=== PATIENT | female | born 1940 | race Caucasian/White ===

== ENCOUNTER 2016-10-22 10:00 | Inpatient (IN) ==
[2016-10-19 12:04] LABS: MANUAL DIFF NEEDED? NO
[2016-10-19 12:32] LABS: BASO% 0.2 % (0.0-0.8); EOS# 0.23 X1000 (0.0-0.7); EOS% 2.6 % (0.0-10.0); HEMATOCRIT 47.8 % (37.0-47.0); HEMOGLOBIN 15.7 g/dL (12.0-16.0); IMM GRAN# 0.03 X1000 (0.0-0.04); IMM GRAN% 0.3 % (0.0-0.5); LYMPH# 1.62 X1000 (1.2-3.4); LYMPH% 18.6 % (20.5-51.1); MCH 32.2 PG (27-31); MCHC 32.8 g/dL (33-37); MCV 98.2 FL (81-99); MONO# 0.81 X1000 (0.11-0.59); MONO% 9.3 % (1.7-9.3); MPV 10.7 FL (7.4-10.4); PLT 226 X1000 (130-400); RBC 4.87 XMIL (4.2-5.4)
[2016-10-19 12:32] LABS: INR 1.13; PTT 32.2 Seconds (22.0-36.0)
[2016-10-19 13:19] LABS: AGAP 13; ALBUMIN 4.4 g/dL (3.5-5.0); ALKALINE PHOSPHATASE 126 U/L (32-104); BUN 8 mg/dL (8-22); CALCIUM 9.8 mg/dL (8.8-10.2); CHLORIDE 101 mmol/L (98-107); COSMO 284; GOT 17 U/L (10-30); GPT 13 U/L (10-36); POTASSIUM 4.7 mmol/L (3.5-5.1); SODIUM 143 mmol/L (136-145); TCO2 29 mmol/L (25-35); TOTAL BILIRUBIN 0.39 mg/dL (0.20-1.00); TOTAL PROTEIN 6.8 g/dL (6.3-8.3)
[2016-10-22] MEDS ORDERED: NS 1,000 ML ONE (10:10)
[2016-10-22] MEDS ORDERED: DIPRIVAN 1% ONE (10:29)
[2016-10-22] MEDS ORDERED: XYLOCAINE-MPF 2% ONE (10:29)
[2016-10-22] MEDS ORDERED: XYLOCAINE 4% TOPICAL SOLUTION ONE (10:32)
--- NOTE | 2016-10-22 11:14 | EKG Report ---
Test Performed on : 10/22/2016 10:14:32 AM Test Reason : LAWRENCE-CARDIO Blood Pressure : / mmHG Vent. Rate : 106 BPM Atrial Rate : 107 BPM P-R Int : 000 ms QRS Dur : 102 ms QT Int : 304 ms P-R-T Axes : 000 -55 019 degrees QTc Int : 403 ms Atrial fibrillation. with rapid ventricular response. Left anterior fascicular block Abnormal ECG No previous ECGs available Confirmed by Alonzo Olson DO ([id number]) on 10/24/2016 10:31:15 AM
[2016-10-22] MEDS ORDERED: AMIDATE ONE (13:23)
--- NOTE | 2016-10-22 13:27 | EKG Report ---
Test Performed on : 10/22/2016 12:07:20 PM Test Reason : following LAWRENCE Blood Pressure : / mmHG Vent. Rate : 084 BPM Atrial Rate : 084 BPM P-R Int : 162 ms QRS Dur : 102 ms QT Int : 376 ms P-R-T Axes : 079 -57 000 degrees QTc Int : 444 ms Normal sinus rhythm. Left anterior fascicular block Nonspecific ST abnormality Abnormal ECG When compared with ECG of 22-OCT-2016 10:14, (Unconfirmed) Sinus rhythm. has replaced Atrial fibrillation. T wave amplitude has decreased in far lateral leads Confirmed by Alonzo Olson DO ([id number]) on 10/24/2016 10:33:39 AM
--- NOTE | 2016-10-22 14:09 | Diag Imaging Result Doc PS360 ---
EXAM: CHEST-2 VIEWS HISTORY: wheezing TECHNIQUE: PA and lateral chest COMMENT: There is hazy opacity over the posterior costophrenic sulci. The heart size and pulmonary vascularity are within normal limits. There are otherwise no focal opacities and no previous studies are available for comparison. IMPRESSION: Mild pulmonary edema versus pneumonia particularly in the posterior costophrenic sulci of the lower lobes. Electronically signed by Vikash Ni 10/22/2016 2:06 PM
[2016-10-22] MEDS ORDERED: DUONEB (A & A) INH ONE (14:31)
[2016-10-22] MEDS ORDERED: LASIX IV ONE ×2 (14:38→23:35)
[2016-10-22] MEDS ORDERED: LASIX ONE (14:51)
[2016-10-22] MEDS ORDERED: ZOFRAN IV PRN (19:44)
[2016-10-22] MEDS ORDERED: MORPHINE IV PRN (19:44)
[2016-10-22] MEDS ORDERED: DUONEB (A & A) INH PRN (19:44)
[2016-10-22] MEDS ORDERED: SODIUM CHLORIDE 0.9% INJ SCH (19:45)
--- NOTE | 2016-10-22 20:36 | Diag Imaging Result Doc PS360 ---
EXAM: CT THORAX W/O CONTRAST HISTORY: pna, pulm edema TECHNIQUE: CT of the chest without contrast with dose reduction (clarity.) COMMENT: There are small pleural effusions in the posterior costophrenic sulci. There is minimal atelectasis in the posterior lower lobes. There is a calcified granuloma present in the right lower lobe on image 70. There is minimal groundglass opacity in the left lower lobe which may be a small focus of pneumonia or pulmonary edema. There are calcified nodes in both mohsen. There is no evidence of acute bony disease. IMPRESSION: Minimal bilateral pleural effusions with atelectasis. Questionable pulmonary edema versus pneumonia left lower lobe. Electronically signed by Vikash Ni 10/22/2016 8:34 PM
[2016-10-22 20:46] LABS: ALLEN TEST YES; BE 6.5 mmoll (-3.0-3.0); BLOOD TYPE ARTERIAL; DRAW SITE R RADIAL; METHB 0.7 % (0.0-1.5); O2(CT) 20.2 mL/dL (15.0-23.0); PCO2(98.6) 44 mmHg (35-45); PO2(98.6) 60 mmHg (60-100); SAMPLE BLOOD; SAO2 93.9 % (95.0-100.0); THB 15.7 g/dL (11.5-17.4); pH(98.6) 7.46 (7.35-7.45)
[2016-10-22 20:47] LABS: MODALITY CANNULA
[2016-10-22] MEDS ORDERED: ZOCOR PO SCH (21:00)
[2016-10-22] MEDS ORDERED: PROTONIX IV SCH (21:00)
[2016-10-22 21:07] LABS: MANUAL DIFF NEEDED? NO
[2016-10-22 21:10] LABS: BASO% 0.2 % (0.0-0.8); EOS# 0.27 X1000 (0.0-0.7); EOS% 2.6 % (0.0-10.0); HEMATOCRIT 46.6 % (37.0-47.0); HEMOGLOBIN 15.5 g/dL (12.0-16.0); LYMPH# 1.55 X1000 (1.2-3.4); LYMPH% 14.7 % (20.5-51.1); MCH 32.6 PG (27-31); MCHC 33.3 g/dL (33-37); MCV 98.1 FL (81-99); MONO# 0.87 X1000 (0.11-0.59); MONO% 8.3 % (1.7-9.3); MPV 10.8 FL (7.4-10.4); NEUT% 74.2 % (42.2-75.2); PLT 212 X1000 (130-400); RBC 4.75 XMIL (4.2-5.4)
--- NOTE | 2016-10-22 21:17 | CARDIAC CATH REPORT ---
PROCEDURE NAME: - SUMMARY: Patient had already been given anesthesia for conscious sedation with propofol per Anesthesiology. Transesophageal echocardiography just performed revealed no evidence of intracardiac thrombus. Patient was subsequently administered 200 joules synchronized biphasic shock with resultant conversion of atrial fibrillation to sinus rhythm. The patient tolerated cardioversion of atrial fibrillation to sinus rhythm without complication. CONCLUSIONS: Successful cardioversion of atrial fibrillation to sinus rhythm. cc: MD Carlos Jones MD
--- NOTE | 2016-10-22 21:17 | ECHO REPORT ---
ORDER DATE: 10/22/2016 SUMMARY: After topical anesthesia to pharynx and intravenous sedation per Anesthesiology with intravenous propofol I passed transesophageal echocardiography in the patient's esophagus without difficulty. Transesophageal echocardiography was performed without incident and demonstrated: 1. Aortic, mitral, tricuspid and pulmonic valves are without structural abnormality. There is mild mitral regurgitation. There is mild tricuspid regurgitation. 2. Normal left ventricular dimension suggested. Estimated left ejection fraction appears to be at least 60%. No regional wall motion abnormalities are evident. Left atrium is mildly enlarged. Right atrium, right ventricle are normal size with normal right ventricular systolic function. All 4 cardiac chambers and left atrial appendage appear free of intracardiac thrombus. 3. No pericardial effusion. 4. Interatrial septum appears intact without evidence of interatrial shunting on color Doppler. Intravenous agitated saline contrast study performed reveals no evidence of [id number] intracardiac shunting. 5. Descending thoracic aorta demonstrates moderate atherosclerotic plaquing. Ascending aorta appears normal in size. cc: MD Carlos Jones MD
[2016-10-22 21:33] LABS: AGAP 16; ALBUMIN 3.9 g/dL (3.5-5.0); ALKALINE PHOSPHATASE 141 U/L (32-104); BUN 8 mg/dL (8-22); CALCIUM 9.6 mg/dL (8.8-10.2); CHLORIDE 100 mmol/L (98-107); COSMO 286; GOT 17 U/L (10-30); GPT 16 U/L (10-36); POTASSIUM 3.9 mmol/L (3.5-5.1); SODIUM 144 mmol/L (136-145); TCO2 28 mmol/L (25-35); TOTAL BILIRUBIN 0.55 mg/dL (0.20-1.00); TOTAL PROTEIN 6.3 g/dL (6.3-8.3)
[2016-10-22] MEDS: ELIQUIS PO SCH (22:40)
[2016-10-22] MEDS: BENTYL PO SCH (22:40)
[2016-10-22] MEDS: ZOSYN 3.375 GM/NS 3.375 GM/50 ML IVPB IV SCH (22:40)
[2016-10-22] MEDS: RYTHMOL SR PO SCH (22:41)
[2016-10-22] MEDS: HUMALOG SUBQ SCH (22:41)
[2016-10-22] MEDS: DUONEB (A & A) INH SCH (23:17)
[2016-10-22] MEDS ORDERED: TYLENOL PO PRN (23:32)
--- NOTE | 2016-10-23 00:43 | HISTORY AND PHYSICAL ---
PRIMARY CARE PROVIDER: Dr. Nicola Dunne. [employer]: Dr. Inder Ramos. TIME: 2029. HISTORY OF PRESENT ILLNESS: Ms Contreras is a 76-year-old female who presented to the hospital early this morning for an outpatient procedure for a transesophageal echocardiogram and cardioversion of atrial fibrillation. Dr. Inder Ramos with Cardiology performed the procedure. According to his procedure note the patient was given anesthesia for conscious sedation with propofol per anesthesiology. The transesophageal echocardiogram performed revealed no evidence of intracardiac thrombus. She was subsequently given 200 joules for synchronized biphasic cardioversion and was successfully cardioverted from atrial fibrillation to sinus rhythm though shortly after the procedure the patient was noted to have some wheezing and was having some hypoxia as well. She was maintaining oxygen saturations at 90% and previously prior to the procedure she was 92-95%. A chest x-ray was performed which did show mild pulmonary edema versus pneumonia particularly in the posterior costophrenic sulci the lower lobes. At this time there was question of possible aspiration pneumonia. Given this Dr. Ramos has asked that the patient be admitted to us for observation for further treatment evaluation of possible aspiration pneumonia versus pulmonary edema. Prior to arriving to the hospital today the patient denies any symptoms other than a chronic cough, she reports being almost 1 pack per day smoker. She states that her sputum can be yellowish and thick in color at times though has not worsened recently. She does report that she has allergies and takes Singulair daily though denies any known history or previous problems with any COPD or asthma. She denies any fever, body aches or chills. She also denies any dizziness, lightheadedness, chest pain, abdominal pain, nausea, vomiting, or diarrhea. She reports her last bowel movement was this morning. She denies any hematochezia or melena. She denies any urinary symptoms. She does report that she occasionally has some swelling in her bilateral ankles though at this time this is actually better than it is normally. She denies any having any known history of congestive heart failure. REVIEW OF SYSTEMS: A 12 point review of systems was conducted with the patient and all were negative except for pertinent positives mentioned above HPI. PAST MEDICAL HISTORY: 1. Atrial fibrillation just recently diagnosed in July 2016. 2. Hypertension. 3. Sleep apnea currently wearing CPAP at night. 4. Gastroesophageal reflux disease. 5. 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 6. Diabetes mellitus type 2. PAST SURGICAL HISTORY: 1. She reports that in her early 20s she did have a laparotomy for treatment of endometriosis. 2. Hysterectomy. 3. Bilateral cataract surgery. SOCIAL HISTORY: She currently is and lives at home with her . He was present at bedside. She denies any alcohol or illicit drug use though has been a 1/3 to 1 pack per day smoker for approximately 50 years. FAMILY HISTORY: She reports that her mother of natural causes and only had known medical problems of arthritis. She reports that her father had a history of heart disease. ALLERGIES: Patient reports allergies to sulfa. HOME MEDICATIONS: Lotrel 10/20 mg capsule 1 capsule p.o. daily, Eliquis 5 mg p.o. b.i.d., atenolol 25 mg p.o. daily, Celexa 40 mg p.o. daily, Bentyl 10 mg p.o. b.i.d., glucosamine 500 mg p.o. daily, Meloxicam 15 mg p.o. daily, Glucophage 1000 mg p.o. daily, Singulair 10 mg p.o. daily, Ocuvite plus multi tablet 1 p.o. b.i.d., omeprazole 40 mg p.o. daily, propafenone HCL at 225 mg p.o. b.i.d. and Zocor 40 mg p.o. at bedtime. DIAGNOSTIC DATA: White blood cell count is 10.52, hemoglobin 15.5, hematocrit 46.6, platelet count is 212,000. Sodium 144, potassium 3.9, chloride 100, bicarb 28, BUN 8, creatinine 0.5, glucose 109, calcium 9.6. Liver function tests are within normal limits except for alkaline phosphatase is slightly elevated at 141. TSH is 1.47. Arterial blood gases were obtained on nasal cannula at 2 L, pH was 7.46, pCO2 44, PO2 60, HCO3 was 29.8 with a base excess of 6.5 and O2 saturation of 93.9. Also coagulation studies were just recently performed on October 19 with a PT of 12, INR of 1.13 and PTT of 32.2. Most recent EKG performed postcardioversion showed normal sinus rhythm with a left anterior fascicular block and nonspecific ST abnormality. This was at a rate of 84 with a QTc of 444. Chest x-ray showed mild pulmonary edema versus pneumonia particularly in the posterior costophrenic sulci the lower lobe. This is per Radiology. Chest CT showed minimal bilateral pleural effusions with atelectasis and questionable pulmonary edema versus pneumonia in left lower lobe. PHYSICAL EXAMINATION: VITAL SIGNS: Heart rate is 85, respiratory rate is 16, blood pressure 131/87, oxygen saturation is 94% nasal cannula at 2 L. GENERAL: Ms. Contreras is a very pleasant 76-year-old female. She was resting comfortably in the inpatient bed, she was in no acute distress. She was awake , alert and able to answer all questions appropriately. HEENT: Head is atraumatic, normocephalic. Pupils equal, round, reactive to light. Oral mucosa is moist. NECK: Supple. Trachea midline. CARDIOVASCULAR: Patient has normal S1, S2. No murmurs, gallops, or rubs appreciated with a regular rate and rhythm. PULMONARY: Patient has symmetrical chest expansion bilaterally. Lung sounds in upper lung guerin did have expiratory wheezing noted. Lung sounds in bilateral bases were slightly diminished. ABDOMEN: Soft, nontender, nondistended. Bowel sounds are present in all 4 quadrants. EXTREMITIES: No cyanosis or clubbing noted. The patient did have some slight swelling noted to her right lower extremity from approximately ankle to midcalf. This is nonpitting at this time. Other than this, all extremities within normal limits. Pulse, motor and sensory is intact in all extremities. Pedal pulses are 3+ bilaterally. Capillary refill was less than 3. INTEGUMENTARY: Patient's skin is pink, warm, dry, intact. No lesions or sores noted. NEUROLOGICAL: Patient is alert and oriented x3. Cranial nerves 2-12 are grossly intact. ASSESSMENT AND PLAN: 1. Acute respiratory failure possibly secondary to aspiration pneumonia. At this time patient is maintaining adequate oxygen saturation with supplemental nasal cannula oxygen at 2 L. There was a question of possibility of pulmonary edema versus pneumonia. We have ordered the patient to receive a 2nd dose of 20 mg of Lasix IV and will also cover her with antibiotic of Zosyn IV for treatment of possible aspiration pneumonia. Blood cultures have been collected as well. We will continue to monitor her respiratory status closely. 2. Aspiration pneumonia. We will continue with treatment as mentioned for #1 and continue to follow. 3. History of atrial fibrillation status post transesophageal echocardiogram and subsequent cardioversion. The patient at this time has been successfully converted from atrial fibrillation to sinus rhythm. She is currently in sinus rhythm at this time. We will continue her daily prescribed Rythmol as well as her Eliquis and will continue to follow. We have also placed a consultation with cardiology and will await their evaluation for further recommendations and management. 4. Hypertension. Will continue her regularly prescribed home medications. 5. Hyperlipidemia. Will continue her Zocor. 6. Diabetes mellitus. At this time we will hold her metformin and put her on a sliding scale insulin. The patient was placed on medical floor telemetry. She will have vital signs q.4 hours. She will be on a diabetic and heart healthy diet. Will do strict intake and output. Will repeat a CBC, BMP, and series of troponins. Further orders and recommendations pending hospital course, diagnostic studies, and physician evaluation. Dictated by KWAME Soliz for Carlos Nichols MD cc: Carlos Nichols MD MTDD
[2016-10-23] MEDS: DUONEB (A & A) INH SCH ×3 (03:35→11:39)
[2016-10-23] MEDS: ZOSYN 3.375 GM/NS 3.375 GM/50 ML IVPB IV SCH ×2 (03:59→11:48)
[2016-10-23] MEDS: HUMALOG SUBQ SCH (06:30)
[2016-10-23 07:24] LABS: MANUAL DIFF NEEDED? NO
[2016-10-23 07:28] LABS: BASO% 0.3 % (0.0-0.8); EOS# 0.24 X1000 (0.0-0.7); EOS% 3.3 % (0.0-10.0); HEMATOCRIT 44.7 % (37.0-47.0); HEMOGLOBIN 14.4 g/dL (12.0-16.0); LYMPH# 1.03 X1000 (1.2-3.4); LYMPH% 14.2 % (20.5-51.1); MCH 31.9 PG (27-31); MCHC 32.2 g/dL (33-37); MCV 98.9 FL (81-99); MONO# 0.65 X1000 (0.11-0.59); MONO% 8.9 % (1.7-9.3); MPV 10.8 FL (7.4-10.4); NEUT% 73.3 % (42.2-75.2); PLT 190 X1000 (130-400); RBC 4.52 XMIL (4.2-5.4)
[2016-10-23 07:54] LABS: AGAP 12; BUN 9 mg/dL (8-22); CALCIUM 9.1 mg/dL (8.8-10.2); CHLORIDE 101 mmol/L (98-107); COSMO 286; POTASSIUM 3.7 mmol/L (3.5-5.1); SODIUM 144 mmol/L (136-145); TCO2 31 mmol/L (25-35)
[2016-10-23] MEDS ORDERED: LOTREL 5/10 MG PO SCH (09:00)
[2016-10-23] MEDS ORDERED: TENORMIN PO SCH (09:00)
[2016-10-23] MEDS ORDERED: PERIDEX MT SCH (09:00)
[2016-10-23] MEDS ORDERED: CELEXA PO SCH (09:00)
[2016-10-23] MEDS ORDERED: SINGULAIR PO SCH (09:00)
[2016-10-23] MEDS ORDERED: KLOR-CON PO ONE (11:01)
[2016-10-23 11:18] VITALS: BP 137/69
[2016-10-23] MEDS: BENTYL PO SCH (12:35)
[2016-10-23] MEDS: ELIQUIS PO SCH (12:36)
[2016-10-23] MEDS: RYTHMOL SR PO SCH (12:37)
--- NOTE | 2016-10-23 15:43 | DISCHARGE SUMMARY ---
ADMISSION DATE: 10/22/2016 DISCHARGE DATE: 10/23/2016 DISCHARGE DIAGNOSES: 1. Acute respiratory failure/resolved. 2. Pulmonary edema versus aspiration pneumonia. 3. Atrial fibrillation, status post transesophageal echocardiogram and subsequent cardioversion done on 10/22/2016. 4. Hypertension. 5. Hyperlipidemia. 6. Diabetes mellitus. CONSULTS: Dr. Inder Ramos, Cardiology Department. HOSPITAL COURSE: A 76-year-old female with a past medical history of atrial fibrillation, hypertension, sleep apnea, GERD, history of CVA, and diabetes. Was admitted yesterday 10/22/2016 secondary to respiratory distress. This patient went yesterday for a transesophageal echocardiogram and cardioversion because this patient had atrial fibrillation. After the procedure, converted to sinus rhythm. After the whole process, this patient was hypoxic, so the outpatient clinic decided to hospitalize this patient under our care. She was given Lasix, oxygen, and also she received a few doses of antibiotics. CT scan of the chest performed yesterday showed a minimal bilateral pleural effusion with atelectasis, questionable pulmonary edema versus pneumonia at the level of the left lower lobe. This patient was not complaining of fever or chills. Today, she is not even coughing, so probably all of this is related to pulmonary edema. I had a conversation with Dr. Ramos, and we decided to discharge this patient today because she was feeling good, vital signs stable, including oxygen saturation without oxygen supplementation. We will add a low dose of furosemide and potassium to her medications, and she will follow up with Dr. Ramos in 10 days. PHYSICAL EXAMINATION: Vital Signs: Temperature 98.9 degrees, pulse 74, respiratory rate 14, blood pressure 137/69, oxygen saturation 96 on room air. HEENT: Head normocephalic. No trauma. PERRLA. Neck: Supple. No JVD. No masses. Central trachea. Chest: Clear to auscultation. No wheezing. No rales. Abdomen: Soft, nontender, nondistended. No hepatosplenomegaly. Cardiovascular: RRR. No murmurs. Extremities: No edema. No clubbing. No cyanosis. Neurological: The patient is alert and oriented x3. No focal neurological deficits. LABORATORY STUDIES: WBC 7.2, hemoglobin 14.4, hematocrit 44.7, platelets 190,000. Sodium 144, potassium 3.7, chloride 101, bicarbonate 31, BUN 9, creatinine 0.6, glucose 104. Calcium 9.1. Troponins negative x3. DISCHARGE MEDICATIONS: Ocuvite Eye plus Multivitamin tablets, 1 tablet p.o. b.i.d., Eliquis 5 mg p.o. b.i.d., amlodipine/benazepril 10/20 mg capsule, 1 capsule p.o. daily, Singulair 10 mg p.o. daily, Celexa 40 mg p.o. daily, atenolol 25 mg p.o. daily, simvastatin 40 mg p.o. at bedtime, metformin 1 g p.o. daily, meloxicam 15 mg p.o. daily, Bentyl 10 mg p.o. b.i.d., propafenone 255 mg p.o. b.i.d., omeprazole 40 mg p.o. daily, glucosamine 500 mg p.o. daily, furosemide 20 mg p.o. daily, and potassium chloride 10 mg p.o. daily. FOLLOWUP: Followup by her primary care doctor in 1 week, and followup with Cardiology Department, Dr. Inder Ramos in 10 days. DIET: We recommended a diabetic diet, low-salt. TIME SPENT: Time discharging this patient around 35 minutes. cc: MD Carlos Sanchez MD
--- NOTE | 2016-10-23 21:27 | CONSULTATION ---
DATE OF CONSULTATION: 10/23/2016 IMPRESSION: 1. Hypoxemia following LAWRENCE cardioversion yesterday possibly due to a small amount of aspiration versus mild pulmonary edema after IV fluids given during procedure. The patient has clinically improved overnight with bronchodilator therapy and diuresis. Antibiotics have also been initiated to cover the possibility of pneumonia. I suspect most likely she had a small amount of aspiration postprocedure and also probably had some underlying chronic obstructive pulmonary disease limiting her tolerance of such. 2. Atrial fibrillation recently diagnosed in 07/2016. Patient anticoagulated and ultimately started on Propafenone. She underwent successful LAWRENCE cardioversion restoring sinus rhythm yesterday. 3. Hypertension. 4. Sleep apnea. 5. Previous cerebrovascular accident with residual peripheral vision loss. 6. Type 2 diabetes mellitus. RECOMMENDATIONS: 1. At this point, it is reasonable for patient to go home soon from a cardiovascular standpoint. 2. She may very well benefit from low-dose loop diuretic as there is probably some component of underlying left ventricular diastolic dysfunction/chronic diastolic heart failure. 3. Likely COPD is realized. 4. Smoking cessation strongly advised. 5. Continue Propafenone and Eliquis. 6. Patient to follow up following discharge in approximately 10-14 days with ECG in our office. HISTORY: This 76-year-old white female with past history of hypertension, longstanding cigarette use, type 2 diabetes mellitus, previous cerebrovascular accident and sleep apnea was admitted yesterday evening because of hypoxemia following LAWRENCE cardioversion. She was initially found to have atrial fibrillation several months ago and was started on rate control anticoagulation with Eliquis. Noninvasive cardiac evaluation was performed and revealed normal left ventricular systolic function. Lexiscan myocardial perfusion study demonstrated no evidence of inducible myocardial ischemia. She was subsequently started on Propafenone but remains in atrial fibrillation. She was brought in yesterday for LAWRENCE cardioversion which she tolerated well. Sinus rhythm was restored. There was no intracardiac thrombus. Prior to the procedure, she was running oxygen saturations of 92%-95%; however, post procedure, she was running oxygen saturations on room air of 88% and she required oxygen. Chest x-ray suggested possible early pneumonia versus mild pulmonary edema. Indeed, she did have some inspiratory crackles in the right base posteriorly. Bronchodilator therapy was administered as well as intravenous Lasix. Despite this, she continued to manifest tendency for hypoxemia. At this point, it was elected to admit her for overnight observation pending improvement. Since admission, she has been diuresed further. She has been started on empiric therapy for possible pneumonia. This morning, she reports feeling better. In fact, when I arrive, she has on room air and her oxygen saturation is 97%. She is not aware of a diagnosis of COPD; however, she has a long-standing history of smoking which is ongoing. She has not been on diuretic therapy. PAST MEDICAL HISTORY: 1. Atrial fibrillation, as outlined above. 2. Hypertensive cardiovascular disease. 3. Type 2 diabetes mellitus. 4. Obstructive sleep apnea. 5. Gastroesophageal reflux disease. 6. Previous cerebrovascular accident with residual peripheral vision loss. PAST SURGICAL HISTORY: Laparotomy for endometriosis, hysterectomy, and bilateral cataract surgery. MEDICATIONS: As listed. SOCIAL HISTORY: She is and lives in [place]. She does not use alcohol. She has history of longstanding cigarette use, anywhere from half pack to a pack of cigarettes per day. FAMILY HISTORY: Negative for premature coronary disease. REVIEW OF SYSTEMS: Pulmonary: Noteworthy for some tendency for cough which is nonproductive. Gastrointestinal: Negative beyond history of present illness. Constitutional: Negative beyond history of present illness. There has been no fever. Remainder of review of systems negative/noncontributory beyond history of present illness with 14 total systems reviewed. PHYSICAL EXAMINATION: General: This is a pleasant, older, white female, in no distress. Vital Signs: As recorded are stable. Blood pressure 144/62, heart rate 89 and regular with ECG monitor showing sinus rhythm. Oxygen saturation 97% on room air. HEENT: Extraocular movements intact. Mucous membranes are moist. Neck: Supple. No jugular venous distention. There are no carotid bruits. Chest: Clear to auscultation. Cardiac Exam: Reveals a regular rate and rhythm without appreciable murmur or gallop. Abdomen: Soft, nontender. Bowel sounds are normal. Extremities: Without edema. Neurologic Exam: She is alert, fully oriented. Speech is fluent. Moves all 4 extremities equally well. Skin: Warm and dry. Psychiatric: Reveals her mood to be appropriate. DIAGNOSTIC DATA: ECG demonstrates sinus tachycardia. Nonspecific ST and T-wave abnormality. cc: MD Carlos Jones MD
[2016-10-24] MEDS ORDERED: LASIX PO SCH (09:00)
[2016-10-24] MEDS ORDERED: KLOR-CON PO SCH (09:00)
--- NOTE | 2016-10-25 06:09 | EKG Report ---
Test Performed on : 10/22/2016 9:06:13 PM Test Reason : chest pain Blood Pressure : / mmHG Vent. Rate : 089 BPM Atrial Rate : 089 BPM P-R Int : 152 ms QRS Dur : 100 ms QT Int : 360 ms P-R-T Axes : 079 -68 -74 degrees QTc Int : 438 ms Normal sinus rhythm. Left anterior fascicular block ST \T\ T wave abnormality, consider inferior ischemia Abnormal ECG When compared with ECG of 22-OCT-2016 12:07, (Unconfirmed) Nonspecific T wave abnormality now evident in Anterior leads Confirmed by Alonzo Olson DO ([id number]) on 10/26/2016 7:11:23 AM
== END 2016-10-23 12:58 | disposition home or self-care (01) ==
LOC: ECH 10:00 → 4N 19:22 → SUATTDRO 19:22
PROVIDERS: ADMIT Internal Medicine; ATTEND Internal Medicine